=== PATIENT | female | born 1975 | race Caucasian/White ===

== ENCOUNTER 2024-04-14 09:24 | Emergency (ER) | payer MEDICAID, OTHER ==
[~2024-04-14] VITALS: Ht 167.6 cm; Wt 81.6 kg
[2024-04-14 09:28] VITALS: BP 130/75; PULSE 90; RESP 16; TEMP 97.5; O2SAT 99
[2024-04-14 10:55] LABS: FLU B ANTIGEN negative (NEGATIVE)
[2024-04-14] MEDS: KETOROLAC 30 MG/ML VIAL IM ONE (10:56)
[2024-04-14 10:57] LABS: FLU A ANTIGEN POSITIVE (NEGATIVE)
[2024-04-14] MEDS ORDERED: TAM75 PO (11:10)
[2024-04-14] MEDS ORDERED: AMOX1TAB8 PO (11:10)
[2024-04-14] MEDS ORDERED: IBUP-2213 PO (11:11)
[2024-04-14 11:12] VITALS: BP 130/75; PULSE 90; RESP 16; TEMP 97.5; O2SAT 99
== END 2024-04-14 11:27 | disposition home or self-care (01) ==
LOC: MED 09:24
DX: J02.0 Streptococcal pharyngitis (principal); J10.1 Influenza due to other identified influenza virus with other respiratory manifestations; E11.9 Type 2 diabetes mellitus without complications; Z20.822 Contact with and (suspected) exposure to COVID-19; Z79.1 Long term (current) use of non-steroidal anti-inflammatories (NSAID); Z79.2 Long term (current) use of antibiotics; Z79.899 Other long term (current) drug therapy
CPT/HCPCS: 71045; 81025; 87081; 87426; 87804; 96372; 99284; J1885

== ENCOUNTER 2024-04-30 06:57 | Emergency (ER) | payer OTHER ==
[~2024-04-30] VITALS: Ht 167.6 cm; Wt 80.7 kg
[~2024-04-30 06:57] MED LIST: AMOX1TAB8 PO; IBUP-2213 PO; TAM75 PO
[2024-04-30 07:29] VITALS: BP 140/91; PULSE 83; RESP 17; TEMP 97; O2SAT 99
[2024-04-30] MEDS: KETOROLAC 60 MG/2 ML VIAL IM ONE (07:51)
[2024-04-30] MEDS ORDERED: IBUP-2213 PO (07:55)
[2024-04-30] MEDS ORDERED: ACET-8905 PO (07:55)
[2024-04-30 08:13] VITALS: BP 112/64; PULSE 79; RESP 19; TEMP 98.2; O2SAT 98
== END 2024-04-30 08:22 | disposition home or self-care (01) ==
LOC: MED 06:57
DX: M54.50 Low back pain, unspecified (principal); E11.9 Type 2 diabetes mellitus without complications; I10 Essential (primary) hypertension; Z79.1 Long term (current) use of non-steroidal anti-inflammatories (NSAID); Z79.2 Long term (current) use of antibiotics; Z79.899 Other long term (current) drug therapy
CPT/HCPCS: 81002; 81025; 96372; 99283; J1885

== ENCOUNTER 2024-05-07 07:46 | Emergency (ER) | payer OTHER ==
[~2024-05-07] VITALS: Ht 167.6 cm; Wt 84.4 kg
[~2024-05-07 07:46] MED LIST changes: +ACET-8905 PO
[2024-05-07 08:01] VITALS: BP 112/91; PULSE 113; RESP 20; TEMP 97.9; O2SAT 100
[2024-05-07] MEDS: CYCLOBENZAPRINE 10 MG TAB PO ONE (08:34)
[2024-05-07] MEDS: LIDOCAINE 5% 1 EA PATCH TP ONE (08:34)
[2024-05-07] MEDS: ACETAMINOPHEN EXTRA STRENGTH 500 MG TAB PO ONE (08:35)
[2024-05-07] MEDS: oxyCODONE 10 MG TABER PO ONE (08:35)
[2024-05-07] MEDS: KETOROLAC 30 MG/ML VIAL IM ONE (08:36)
[2024-05-07] MEDS ORDERED: LID5T TP (09:57)
[2024-05-07] MEDS ORDERED: CYCL-711 PO (09:57)
== END 2024-05-07 10:05 | disposition home or self-care (01) ==
LOC: MED 07:46
DX: M54.41 Lumbago with sciatica, right side (principal); E11.9 Type 2 diabetes mellitus without complications; I10 Essential (primary) hypertension; Z79.1 Long term (current) use of non-steroidal anti-inflammatories (NSAID); Z79.2 Long term (current) use of antibiotics; Z79.899 Other long term (current) drug therapy
CPT/HCPCS: 72131; 81025; 96372; 99285; J1885